=== PATIENT | female | born 1940 | race Caucasian/White ===

== ENCOUNTER 2017-01-03 09:01 | Emergency (ER) | payer MEDICARE, OTHER ==
[~2017-01-03] VITALS: Ht 175.3 cm; Wt 65.8 kg
--- NOTE | 2017-01-03 09:15 | NUR ---
AT BEDSIDE FOR EVAL
[2017-01-03] MEDS ORDERED: MORPHINE SULFATE INJ 4 MG/ML DISP.SYRIN ONE (09:20)
[2017-01-03] MEDS ORDERED: IV NS 0.9% 1,000 ML ONE (09:20)
[2017-01-03] MEDS ORDERED: ONDANSETRON HCL/PF 4 MG/2 ML VIAL ONE (09:20)
[2017-01-03] MEDS ORDERED: DEXAMETHASONE SOD PHOSPHATE 10 MG/ML VIAL ONE (09:20)
[2017-01-03] MEDS ORDERED: IV SET PRIMARY PUMP SET 1 EA INFUS.SET MC ONE (09:20)
--- NOTE | 2017-01-03 09:20 | NUR ---
[id number], came to ER bib c/o neck and shoulder pain and headache, no recent fall or injury reported. skin is warm and dry. Assisted to hospital gown. Placed on monitor. Will continuously monitor the patient. neuro intact. 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
[2017-01-03] MEDS ORDERED: IV NS 0.9% 1,000 ML BAG IV ONE (09:30)
[2017-01-03] MEDS ORDERED: ONDANSETRON HCL/PF - ER 4 MG/2 ML VIAL IV ONE (09:30)
[2017-01-03] MEDS: MORPHINE SULFATE INJ 2 MG/ML DISP.SYRIN IV ONE ×2 (09:31→09:33)
[2017-01-03] MEDS: DEXAMETHASONE SOD PHOSPHATE 10 MG/ML VIAL IV ONE ×2 (09:31→09:35)
[2017-01-03 09:34] LABS: BASOPHILS # (AUTO) 0.3 /CMM (0.0-0.2); BASOPHILS % (AUTO) 2.2 % (0.0-2.0); EOSINOPHILS % (AUTO) 0.2 % (0.0-6.0); HEMATOCRIT 41 % (33-45); HEMOGLOBIN 14.1 g/dL (11.5-14.8); LYMPHOCYTES # (AUTO) 1.3 /CMM (0.8-4.8); LYMPHOCYTES % (AUTO) 10.8 % (20.0-44.0); MEAN CORPUSCULAR HEMOGLOBIN 31 PG (26.0-33.0); MEAN CORPUSCULAR HGB CONC 34 g/dl (31.0-36.0); MEAN CORPUSCULAR VOLUME 91 fL (82-100); MONOCYTES # (AUTO) 0.7 /CMM (0.1-1.30); NEUTROPHILS # (AUTO) 9.8 /CMM (1.8-8.9); NEUTROPHILS % (AUTO) 80.8 % (43.0-81.0); PLATELET COUNT (AUTO) 306 /CMM (150-450); RDW COEFFICIENT OF VARIATION 12.5 (11.5-15.0); RED BLOOD CELL COUNT(AUTO) 4.55 MIL/uL (4.0-5.2); WHITE BLOOD COUNT (AUTO) 12.1 K/uL (4.3-11.0)
--- NOTE | 2017-01-03 09:35 | NUR ---
PT TAKEN TO CT VIA [facility]
[2017-01-03 09:44] LABS: CALCIUM, SERUM 9.4 mg/dL (8.5-10.1); CARBON DIOXIDE 32 mmol/L (21-32); CHLORIDE 97 mmol/L (98-107); GLUCOSE 138 mg/dL (74-106); SODIUM SERUM 135 mmol/L (136-145); UREA NITROGEN, BLOOD 16 mg/dL (7-18)
[2017-01-03 09:52] LABS: POTASSIUM 2.8 mmol/L (3.5-5.1); TROPONIN I < 0.017 ng/mL (0.00-0.056)
[2017-01-03 10:01] LABS: INR 0.94 (0.87-1.13); PROTHROMBIN TIME 9.8 SECS (9.5-12.7)
[2017-01-03 10:08] LABS: URIC ACID 3.8 mg/dL (2.6-7.2)
[2017-01-03] MEDS ORDERED: LACT1CAP74 PO (10:12)
[2017-01-03] MEDS ORDERED: CHLO25TA2 PO (10:12)
[2017-01-03] MEDS ORDERED: PITA1TAB PO (10:12)
[2017-01-03] MEDS ORDERED: KRIL500C PO (10:12)
[2017-01-03] MEDS ORDERED: CHOL100044 PO (10:12)
[2017-01-03] MEDS ORDERED: ASPI81TA2 PO (10:12)
[2017-01-03] MEDS ORDERED: LOSA50TA21 PO (10:12)
[2017-01-03] MEDS ORDERED: UBIQ200C PO (10:12)
[2017-01-03] MEDS ORDERED: MULT-659 PO (10:14)
[2017-01-03 10:17] LABS: C-REACTIVE PROTEIN 3.9 mg/dL (0.0-0.9)
[2017-01-03] MEDS ORDERED: [UNRECOGNIZED DRUG - MIXTURE] PO (10:17)
[2017-01-03] MEDS ORDERED: CYAN25003 SL (10:19)
[2017-01-03] MEDS ORDERED: POTASSIUM CHLORIDE 20 MEQ TAB.PRT.SR PO ONE ×2 (10:24→10:30)
--- NOTE | 2017-01-03 10:52 | NUR ---
Dr Lerma at for an update and re-eval.
[2017-01-03 11:08] VITALS: BP 138/84
--- NOTE | 2017-01-03 11:08 | NUR ---
IV removed. Catheter intact and site benign. Pressure and 4x4 applied to site. No bleeding noted.Patient discharged to home in stable condition. Written and verbal after care instructions given. Patient verbalizes understanding of instruction.
== END 2017-01-03 11:09 | disposition home or self-care (01) ==
LOC: ER 09:05
DX: M54.2 Cervicalgia (principal); E87.6 Hypokalemia; K59.00 Constipation, unspecified; M19.90 Unspecified osteoarthritis, unspecified site; R51 Headache; I10 Essential (primary) hypertension; Z79.82 Long term (current) use of aspirin
CPT/HCPCS: 36415; 70450-TC; 71010-TC; 72125-TC; 80048-TC; 84484-TC; 84550-TC; 85025-TC; 85652-TC; 85730-TC; 86140-TC; A4606; J1100; J2270; J2405; J7030; Z7610

== ENCOUNTER 2017-09-01 18:58 | Emergency (ER) | payer MEDICARE, OTHER ==
[~2017-09-01] VITALS: Ht 167.6 cm; Wt 63.5 kg
[~2017-09-01 18:58] MED LIST: ASPI-1169 PO; CHLO25TA2 PO; CHOL100044 PO; CYAN25003 SL; KRIL500C PO; LACT1CAP74 PO; LOSA50TA21 PO; MULT-659 PO; PITA1TAB PO; UBIQ200C PO; [UNRECOGNIZED DRUG - MIXTURE] PO
[2017-09-01 20:10] VITALS: BP 167/77
== END 2017-09-01 20:11 | disposition home or self-care (01) ==
LOC: ER 19:02
DX: R51 Headache (principal); I10 Essential (primary) hypertension; Z79.82 Long term (current) use of aspirin
CPT/HCPCS: 99283; A4606; Z7610

== ENCOUNTER 2023-07-04 14:11 | Emergency (ER) | payer BC, MEDICARE, OTHER ==
[~2023-07-04] VITALS: Ht 167.6 cm; Wt 61.2 kg
[~2023-07-04 14:11] MED LIST changes: -LACT1CAP74 PO; +LACT1CAP80 PO; -LOSA50TA21 PO; +LOSA50TA39 PO
[2023-07-04 15:23] LABS: BASOPHILS % (AUTO) 0.6 % (0.0-2.0); EOSINOPHILS # (AUTO) 0.2 K/uL (0.0-0.7); EOSINOPHILS % (AUTO) 2.4 % (0.0-6.0); HEMATOCRIT 40 % (33-45); HEMOGLOBIN 13.4 g/dL (11.5-14.8); LYMPHOCYTES # (AUTO) 1.5 K/uL (0.8-4.8); LYMPHOCYTES % (AUTO) 22.1 % (20.0-44.0); MEAN CORPUSCULAR HEMOGLOBIN 31 PG (26.0-33.0); MEAN CORPUSCULAR HGB CONC 34 g/dl (31.0-36.0); MEAN CORPUSCULAR VOLUME 92 fL (82-100); MONOCYTES # (AUTO) 0.7 K/uL (0.1-1.30); MONOCYTES % (AUTO) 10.1 % (2.0-12.0); NEUTROPHILS # (AUTO) 4.4 K/uL (1.8-8.9); NEUTROPHILS % (AUTO) 64.8 % (43.0-81.0); PLATELET COUNT (AUTO) 272 K/uL (150-450); RED BLOOD CELL COUNT(AUTO) 4.34 MIL/uL (4.0-5.2); RED CELL DISTRIBUTION WIDTH 13.7 % (11.5-15.0); WHITE BLOOD COUNT (AUTO) 6.8 K/uL (4.3-11.0)
[2023-07-04 15:31] LABS: CALCIUM, SERUM 9.3 mg/dL (8.5-10.1); CARBON DIOXIDE 27 mmol/L (21-32); CHLORIDE 99 mmol/L (98-107); CREATININE 0.9 mg/dL (0.6-1.3); GLUCOSE 171 mg/dL (74-106); POTASSIUM 2.9 mmol/L (3.5-5.1); SODIUM SERUM 135 mmol/L (136-145); UREA NITROGEN, BLOOD 19 mg/dL (7-18)
[2023-07-04 15:33] LABS: INR 0.95 (0.91-1.10); MAGNESIUM 1.9 mg/dL (1.8-2.4); PARTIAL THROMBOPLASTIN TIME 27.4 SEC (24.3-34.3); PROTHROMBIN TIME 10.1 SECS (9.2-11.1)
[2023-07-04 15:45] LABS: NT-PRO BNP 105 pg/mL (0-125)
[2023-07-04 16:22] LABS: THYROID STIMULATING HORMONE 2.645 uIU/mL (0.358-3.74)
[2023-07-04 18:36] VITALS: BP 148/48; TEMP 98.7; O2SAT 100
== END 2023-07-04 18:37 | disposition left against medical advice (07) ==
LOC: ER 14:11
DX: R07.89 Other chest pain (principal); I10 Essential (primary) hypertension; Z79.899 Other long term (current) drug therapy; Z79.82 Long term (current) use of aspirin
CPT/HCPCS: 36415; 71045-TC; 80048-TC; 83735-TC; 83880; 84439-TC; 84443-TC; 84484-TC; 85025-TC; 85730-TC

== ENCOUNTER 2023-11-07 05:47 | Emergency (ER) | payer BC ==
[~2023-11-07] VITALS: Ht 167.6 cm; Wt 63.5 kg
[2023-11-07] MEDS ORDERED: IBUPROFEN 600 MG TABLET ONE (06:41)
[2023-11-07] MEDS ORDERED: CYCLOBENZAPRINE 10 MG TABLET ONE (06:41)
[2023-11-07] MEDS: IBUPROFEN 600 MG TABLET PO ONE (06:42)
[2023-11-07] MEDS: CYCLOBENZAPRINE 10 MG TABLET PO ONE (06:42)
[2023-11-07] MEDS ORDERED: LIDO30AD10 TP (06:56)
[2023-11-07] MEDS ORDERED: CYCL5TAB PO (06:56)
[2023-11-07 07:02] VITALS: BP 144/89; TEMP 98; O2SAT 95
== END 2023-11-07 07:02 | disposition home or self-care (01) ==
LOC: ER 06:08
DX: M54.2 Cervicalgia (principal); I10 Essential (primary) hypertension; Z79.82 Long term (current) use of aspirin; Z79.899 Other long term (current) drug therapy

== ENCOUNTER 2023-12-03 19:56 | Emergency (ER) | payer BC ==
[~2023-12-03] VITALS: Ht 160 cm; Wt 86.2 kg
[~2023-12-03 19:56] MED LIST changes: +CYCL5TAB PO; +LIDO30AD10 TP
[2023-12-03] MEDS: CLONIDINE HCL 0.1 MG TABLET PO ONE (20:32)
[2023-12-03 20:54] LABS: BASOPHILS # (AUTO) 0.1 K/uL (0.0-0.2); BASOPHILS % (AUTO) 0.8 % (0.0-2.0); EOSINOPHILS # (AUTO) 0.2 K/uL (0.0-0.7); EOSINOPHILS % (AUTO) 2.6 % (0.0-6.0); HEMATOCRIT 39 % (33-45); HEMOGLOBIN 13.4 g/dL (11.5-14.8); LYMPHOCYTES # (AUTO) 1.9 K/uL (0.8-4.8); LYMPHOCYTES % (AUTO) 28.6 % (20.0-44.0); MEAN CORPUSCULAR HEMOGLOBIN 31 PG (26.0-33.0); MEAN CORPUSCULAR HGB CONC 34 g/dl (31.0-36.0); MEAN CORPUSCULAR VOLUME 91 fL (82-100); MONOCYTES # (AUTO) 0.7 K/uL (0.1-1.30); MONOCYTES % (AUTO) 10.6 % (2.0-12.0); NEUTROPHILS # (AUTO) 3.8 K/uL (1.8-8.9); NEUTROPHILS % (AUTO) 57.4 % (43.0-81.0); PLATELET COUNT (AUTO) 249 K/uL (150-450); RED BLOOD CELL COUNT(AUTO) 4.31 MIL/uL (4.0-5.2); RED CELL DISTRIBUTION WIDTH 14.3 % (11.5-15.0); WHITE BLOOD COUNT (AUTO) 6.7 K/uL (4.3-11.0)
[2023-12-03 21:57] LABS: CALCIUM, SERUM 8.8 mg/dL (8.5-10.1); CARBON DIOXIDE 31 mmol/L (21-32); CHLORIDE 99 mmol/L (98-107); CREATININE 1.1 mg/dL (0.6-1.3); GLUCOSE 145 mg/dL (74-106); NT-PRO BNP 155 pg/mL (0-125); POTASSIUM 2.9 mmol/L (3.5-5.1); SODIUM SERUM 134 mmol/L (136-145); UREA NITROGEN, BLOOD 15 mg/dL (7-18)
[2023-12-03] MEDS ORDERED: CLON0.1T PO (22:03)
[2023-12-03] MEDS ORDERED: POTA20TA83 PO (22:03)
[2023-12-03] MEDS ORDERED: POTASSIUM CHLORIDE 20 MEQ TAB.PRT.SR PO ONE (22:32)
[2023-12-03] MEDS: POTASSIUM CHLORIDE 20 MEQ TAB.PRT.SR PO ONE (22:36)
[2023-12-03 22:46] VITALS: BP 134/82; TEMP 98; O2SAT 98
== END 2023-12-03 22:46 | disposition home or self-care (01) ==
LOC: ER 19:59
DX: I10 Essential (primary) hypertension (principal); E87.6 Hypokalemia; Z79.899 Other long term (current) drug therapy
CPT/HCPCS: 36415; 71045-TC; 80048-TC; 83735-TC; 83880; 84484-TC; 85025-TC